=== PATIENT | female | born 1970 | race Two or more races ===

== ENCOUNTER 2020-09-24 22:04 | Emergency (ER) | payer BC, OTHER ==
[~2020-09-24] VITALS: Ht 162.6 cm; Wt 58.1 kg
--- NOTE | 2020-09-24 22:10 | NUR ---
PATIENT [id number] FROM HOME C/O LUQ AND LLQ ABD PAIN, JUST ARRIVED FROM [facility]; ATE SEAFOOD AND COULD BE POSSIBLE FOOD POISONING. PATIENT A/OX4. ON ROOM AIR TOLERATING WELL. CONNECTED TO CARDIAC AND POX MONITOR. MD AWARE. SAFETY MEASURES IN PLACE.
[2020-09-24] MEDS ORDERED: KETOROLAC TROMETHAMINE INJ 30 MG/ML VIAL ONE (22:25)
[2020-09-24] MEDS ORDERED: IV NS 0.9% 1,000 ML BAG IV ONE (22:30)
[2020-09-24] MEDS ORDERED: KETOROLAC TROMETHAMINE INJ 30 MG/ML VIAL IV ONE (22:30)
[2020-09-24 22:38] LABS: BASOPHILS # (AUTO) 0.1 K/uL (0.0-0.2); BASOPHILS % (AUTO) 1.2 % (0.0-2.0); EOSINOPHILS % (AUTO) 4.7 % (0.0-6.0); HEMATOCRIT 40 % (33-45); HEMOGLOBIN 13.6 g/dL (11.5-14.8); LYMPHOCYTES # (AUTO) 2.4 K/uL (0.8-4.8); LYMPHOCYTES % (AUTO) 35.2 % (20.0-44.0); MEAN CORPUSCULAR HGB CONC 34 g/dl (31.0-36.0); MEAN CORPUSCULAR VOLUME 96 fL (82-100); MONOCYTES # (AUTO) 0.5 K/uL (0.1-1.30); MONOCYTES % (AUTO) 7.1 % (2.0-12.0); NEUTROPHILS # (AUTO) 3.5 K/uL (1.8-8.9); NEUTROPHILS % (AUTO) 51.8 % (43.0-81.0); PLATELET COUNT (AUTO) 218 K/uL (150-450); RED BLOOD CELL COUNT(AUTO) 4.15 MIL/uL (4.0-5.2); WHITE BLOOD COUNT (AUTO) 6.8 K/uL (4.3-11.0)
--- NOTE | 2020-09-24 22:44 | NUR ---
INITIATED RAC #20G ON NS 1000ML
[2020-09-24 22:51] LABS: ALBUMIN 4.1 g/dL (3.4-5.0); BILIRUBIN,DIRECT 0.2 mg/dL (0.0-0.2); BILIRUBIN,TOTAL 0.5 mg/dL (0.2-1.0); CREATININE 0.8 mg/dL (0.6-1.3); POTASSIUM 3.6 mmol/L (3.5-5.1); TOTAL PROTEIN, SERUM 7.7 g/dL (6.4-8.2)
--- NOTE | 2020-09-24 23:10 | NUR ---
COLLECTED URINE SPECIMEN. LAB AWARE.
[2020-09-24 23:19] LABS: BILIRUBIN,URINE Negative (NEGATIVE); COLOR,URINE YELLOW (YELLOW); LEUKOCYTE ESTERASE ,URINE Small (NEGATIVE); NITRITE, URINE Negative (NEGATIVE); PROTEIN,URINE Negative (NEGATIVE); UGLUCOSE Negative (NEGATIVE); UROBILINOGEN,URINE 0.2 EU/dL (0.2)
[2020-09-24 23:31] LABS: RBC,URINE 0-2 /HPF (0-2)
[2020-09-24 23:32] LABS: BACTERIA,URINE Rare /HPF (None Seen); SQUAMOUS EPITHELIAL CELL,UR Rare /HPF (None Seen)
[2020-09-24] MEDS ORDERED: SENN-18 PO (23:34)
[2020-09-24] MEDS ORDERED: POLY119P2 PO (23:34)
[2020-09-24] MEDS ORDERED: DOCU-141 PO (23:34)
--- NOTE | 2020-09-24 23:45 | NUR ---
Patient discharged to home in stable condition. Written and verbal after care instructions given. Gave patient presription order. Patient verbalizes understanding of instruction. Dolores ambulatory with a steady gait.
[2020-09-24 23:56] VITALS: BP 102/66
== END 2020-09-24 23:56 | disposition home or self-care (01) ==
LOC: ER 22:06
DX: R10.32 Left lower quadrant pain (principal); K59.00 Constipation, unspecified
CPT/HCPCS: 36415; 74176; 80048; 80076; 81001; 83690; 85025; 96361; 96374; 99284; J1885; J7030